=== PATIENT | male | born 1950 | race Caucasian/White ===

== ENCOUNTER 2018-03-23 15:25 | Inpatient (IN) | payer OTHER ==
[~2018-03-23] VITALS: Ht 185.4 cm; Wt 138.4 kg
[~2018-03-23 15:25] MED LIST: ALLOPURINOL300 MG PO; AMIODARONE HCL200 MG PO; ASPIRIN325 MG PO; COUMADIN5 MG PO; LISINOPRIL-HCT1 EAC2 PO; METFORMIN HCL500 MG PO; METOPROLOL SUCC25 MG PO; METOPROLOL TART25 MG PO; MONTELUKAST SOD10 MG PO; NORCO 7.5-3251 EACH PO; PRAVASTATIN SOD80 MG PO; TAMSULOSIN HCL0.4 MG PO
[2018-03-23] MEDS ORDERED: ASPIRIN 81 MG CHEW TAB PO STA (15:40)
[2018-03-23 15:59] LABS: BASOPHILS % 0.6 % (0.0-1.0); EOSINOPHILS # (AUTO) 0.2 (0.0-0.4); EOSINOPHILS % 3.3 % (0.0-6.0); HEMATOCRIT 39.6 % (38.2-49.6); HEMOGLOBIN 13.2 g/dL (14.0-18.0); LYMPHOCYTES % 31.2 % (18.0-39.1); MEAN CORPUSCULAR HEMOGLOBIN 31.4 pg (28-32); MEAN CORPUSCULAR HGB CONC 33.3 g/dL (31-35); MEAN CORPUSCULAR VOLUME 94.1 fL (81-99); MONOCYTES # (AUTO) 0.5 (0.2-0.8); MONOCYTES % 8.2 % (4.4-11.3); NEUTROPHILS # (AUTO) 3.6 (2.1-6.9); NEUTROPHILS % 56.4 % (38.7-80.0); PLATELET COUNT 225 x10e3/uL (140-360); RED BLOOD COUNT 4.21 x10e6/uL (4.3-5.7); RED CELL DISTRIBUTION WIDTH 12.9 % (11.7-14.4)
[2018-03-23 16:07] LABS: INR 1.11; PROTHROMBIN TIME 13.5 seconds (11.9-14.5)
[2018-03-23 16:08] LABS: PARTIAL THROMBOPLASTIN TIME 34.3 seconds (23.8-35.5)
[2018-03-23 16:18] LABS: ALANINE AMINOTRANSFERASE 33 IU/L (0-55); ALBUMIN/GLOBULIN RATIO 1.1 (0.8-2.0); ALKALINE PHOSPHATASE 77 IU/L (40-150); ANION GAP 13.7 mmol/L (8-16); BLOOD UREA NITROGEN 18 mg/dL (7-26); BUN/CREATININE RATIO 16 (6-25); CARBON DIOXIDE 25 mmol/L (22-29); CHLORIDE 102 mmol/L (98-107); CREATINE KINASE 108 IU/L (30-200); CREATININE, SERUM 1.15 mg/dL (0.72-1.25); EST GLOMERULAR FILTRATION RATE > 60 ML/MIN (60-); GLUCOSE 105 mg/dL (74-118); POTASSIUM 4.7 mmol/L (3.5-5.1); SODIUM 136 mmol/L (136-145)
[2018-03-23] MEDS ORDERED: SODIUM CHLORIDE FLUSH 10 ML SYR INJ PRN (16:30)
[2018-03-23 16:37] LABS: THYROID STIMULATING HORMONE 3.006 uIU/mL (0.350-4.940)
[2018-03-23] MEDS ORDERED: DIGOXIN 0.25 MG TAB PO ONE (17:15)
--- NOTE | 2018-03-23 17:32 | Diagnostic Imaging Report ---
PROCEDURE: A single AP view of the chest. COMPARISON: Patients [facility], CT, CT CHEST WO, 04/22/2017, 15:49. INDICATIONS: POST EVALUATION LOOPAGRAM, DIZZY FINDINGS: Lines/tubes: None. Lungs: The lungs are well inflated and clear. There is no evidence of pneumonia or pulmonary edema. Pleura: There is no pleural effusion or pneumothorax. Heart and mediastinum: The heart and the mediastinum are unremarkable. Bones: No acute bony abnormality. Fusion hardware is partially visualized in the lower cervical spine. IMPRESSION: 1. No acute cardiopulmonary abnormalities. Alexx Welsh M.D. Dictated by: Alexx Welsh M.D. on 03/23/2018 at 17:34 Electronically approved by: Alexx Welsh M.D. on 03/23/2018 at 17:34
[2018-03-23] MEDS ORDERED: LISINOPRIL10 MG PO (17:40)
[2018-03-23] MEDS ORDERED: DIGOXIN125 MCG PO (17:40)
[2018-03-23] MEDS ORDERED: WARFARIN SOD 5 MG TAB PO SCH (18:15)
[2018-03-23] MEDS: MONTELUKAST SODIUM 10 MG TAB PO SCH (19:33)
[2018-03-23 23:12] VITALS: BP 150/76
[2018-03-23 23:25] VITALS: BP 150/76
[2018-03-24] VITALS (7 sets, daily range): BP systolic 130–165; BP diastolic 62–90
[2018-03-24 06:58] LABS: BASOPHILS # (AUTO) 0.1 (0.0-0.1); BASOPHILS % 0.9 % (0.0-1.0); EOSINOPHILS # (AUTO) 0.3 (0.0-0.4); EOSINOPHILS % 4.8 % (0.0-6.0); HEMATOCRIT 39.5 % (38.2-49.6); HEMOGLOBIN 12.8 g/dL (14.0-18.0); MEAN CORPUSCULAR HEMOGLOBIN 31.4 pg (28-32); MEAN CORPUSCULAR HGB CONC 32.4 g/dL (31-35); MEAN CORPUSCULAR VOLUME 96.8 fL (81-99); MONOCYTES # (AUTO) 0.5 (0.2-0.8); MONOCYTES % 9.2 % (4.4-11.3); NEUTROPHILS # (AUTO) 2.7 (2.1-6.9); NEUTROPHILS % 48.6 % (38.7-80.0); PLATELET COUNT 198 x10e3/uL (140-360); RED BLOOD COUNT 4.08 x10e6/uL (4.3-5.7)
[2018-03-24 07:17] LABS: INR 1.07; PROTHROMBIN TIME 13.1 seconds (11.9-14.5)
[2018-03-24 07:21] LABS: CREATINE KINASE 96 IU/L (30-200)
[2018-03-24 07:28] LABS: ALANINE AMINOTRANSFERASE 30 IU/L (0-55); ALBUMIN 3.7 g/dL (3.5-5.0); ALBUMIN/GLOBULIN RATIO 1.1 (0.8-2.0); ALKALINE PHOSPHATASE 70 IU/L (40-150); ANION GAP 14.3 mmol/L (8-16); BLOOD UREA NITROGEN 19 mg/dL (7-26); BUN/CREATININE RATIO 18 (6-25); CALCIUM 10.4 mg/dL (8.4-10.2); CARBON DIOXIDE 27 mmol/L (22-29); CHLORIDE 103 mmol/L (98-107); CHOL/HDL RATIO 4.2 (3.9-4.7); CHOLESTEROL 199 MD/DL (0-199); CREATININE, SERUM 1.05 mg/dL (0.72-1.25); EST GLOMERULAR FILTRATION RATE > 60 ML/MIN (60-); GLUCOSE 120 mg/dL (74-118); HDL CHOLESTEROL 47 MG/DL (40-60); LDL CHOLESTEROL 110 MG/DL (60-130); POTASSIUM 5.3 mmol/L (3.5-5.1); SODIUM 139 mmol/L (136-145); TRIGLYCERIDES 210 MG/DL (0-149)
[2018-03-24] MEDS ORDERED: SOD POLYSTYRENE SULFONATE SUSP 15 GM/60 ML BTL PR NR ×2 (08:30→12:00)
[2018-03-24] MEDS ORDERED: SIMVASTATIN 40 MG TAB PO SCH (09:00)
[2018-03-24] MEDS ORDERED: METOPROLOL TARTRATE 25 MG TAB PO SCH (09:00)
[2018-03-24] MEDS: ASPIRIN 325 MG TAB PO SCH (09:00)
[2018-03-24] MEDS ORDERED: ASPIRIN 325 MG TAB EC PO SCH (09:00)
[2018-03-24] MEDS: TAMSULOSIN HCL 0.4 MG CAP PO SCH (09:01)
[2018-03-24] MEDS: SIMVASTATIN 40 MG TAB PO SCH (09:01)
[2018-03-24] MEDS: ALLOPURINOL 300 MG TAB PO SCH (09:01)
[2018-03-24] MEDS: LISINOPRIL 10 MG TAB PO SCH (09:01)
--- NOTE | 2018-03-24 09:50 | Consultation ---
DATE OF CONSULTATION: March 24, 2018 CARDIOLOGY CONSULTATION REASON FOR CONSULTATION: Syncope. HPI: This is a pleasant 67-year-old male that presented with syncope. According to the patient, for the last 2-3 months he has been getting very dizzy, passing out that he decided to see the citrix architect today. In the office, he saw Dr. Jin. His loop recorder was interrogated, and found he was having some pauses with sick sinus syndrome. He was sent to the emergency room for possible permanent pacemaker placement. He had a loop recorder implanted 3-[address] Juan Barksdale. His insurance changed, and he switched to us last year. He also had a history of hypothyroidism, and was taken off medications for the last 3-4 months because his thyroid got better. He denied any chest pain, any palpitation, any headache, any diaphoresis, or nausea. He had a chest x-ray done that showed no cardiopulmonary disease. EKG showed normal sinus rhythm with no S/T abnormalities. PAST MEDICAL HISTORY: Hypertension, diabetes, AFib, hypothyroidism, aortic stenosis, obstructive sleep apnea, hyperlipidemia, osteoarthritis, COPD, gout, spondylosis, spinal stenosis, kidney disease, and arthritis. PAST SURGICAL HISTORY: Cataract surgery, carpal tunnel surgery, cardioversion for AFib, cervical diskectomy, and implanted loop recorder. SOCIAL HISTORY: He quit smoking. He lives at home with the . FAMILY HISTORY: Positive for CAD. MEDICATIONS: He was on allopurinol, aspirin, lisinopril, metoprolol, pravastatin, Flomax, Coumadin, digoxin. ALLERGIES: HE IS NOT ALLERGIC TO ANY MEDICATION. REVIEW OF SYSTEMS: Negative except those mentioned above. PHYSICAL EXAMINATION VITAL SIGNS: Temperature 96, heart rate 60, blood pressure 152/79, respirations 20, oxygen saturation 98% on room air. GENERAL: He is morbidly obese, awake, alert, and oriented times 3. HEENT: Mucous membrane moist. NECK: Supple. LUNGS: Bilateral clear to auscultation. CARDIOVASCULAR: Irregular. ABDOMEN: Soft. NEUROLOGICAL: Intact. EXTREMITIES: With no edema. LABS: Sodium 139, potassium 5.3, chloride 103, CO2 27, BUN 19, creatinine 1.05, glucose 120. White blood cells 5.64, hemoglobin 12.8, hematocrit 39.5, and platelets 198,000. PT 13.5, PTT 34.3 and INR 1.11. IMPRESSION 1. Sick sinus syndrome. 2. Atrial fibrillation. 3. Hypertension. 4. Syncope. 5. Hyperkalemia. 6. Diabetes. 7. Obesity. 8. Hyperlipidemia. 9. History of implanted loop recorder. ASSESSMENT AND PLAN: Will go ahead and hold the Coumadin and beta jojo. Will give him Kayexalate times 1. Consult Dr. Rveeles for possible permanent pacemaker placement. Will get an echocardiogram to reassess the LV and the valve function. Also, check bilateral carotid Doppler to rule out any occlusion. Will also check his TSH. Further cardiac workup pending clinical course. Thank you for this consultation. DICTATED BY MANJU WISE NP Job#: [id number] TOY
--- NOTE | 2018-03-24 09:56 | History and Physical ---
PCP: Dr. Getachew Lopes UNION CARPENTER: Dr. Oumar Jin CHIEF COMPLAINT: Syncopal episode, atrial fibrillation, sick sinus syndrome. HISTORY: The patient is a 67-year-old male with decreasing heart rate in the 30s to 40s. He has been having passing-out episodes. Patient was sent to the hospital by his aircraft quality control inspector, Dr. Jin. Patient is otherwise stable. He does have sick sinus syndrome and is waiting for a permanent pacemaker. PAST MEDICAL HISTORY 1. Atrial fibrillation. 2. Syncope. 3. Hypertension. 4. Diabetes, type 2. 5. Coronary artery disease. 6. Congestive heart failure. 7. Hyperlipidemia. 8. Gout. 9. Enlarged prostate. PAST SURGICAL HISTORY: Cervical spine diskectomy. SOCIAL HISTORY: Patient does not smoke or use alcohol. No recreational drug use. ALLERGIES: NO KNOWN ALLERGIES. HOME MEDICATIONS: List reviewed. REVIEW OF SYSTEMS: As mentioned above. PHYSICAL EXAMINATION VITAL SIGNS: Temperature is 98. Blood pressure 165/90. Pulse rate 93. Respirations 18. GENERAL: The patient is in no acute distress. He is awake. HEENT: Normocephalic, atraumatic, anicteric. NECK: Supple grossly. PULMONARY: Clear. CARDIOVASCULAR: Atrial fibrillation. Rate controlled. ABDOMEN: Soft, obese. EXTREMITIES: No cyanosis or edema. NEUROLOGIC: There is no gross focal deficit. LABORATORY: Sodium is 139, potassium 5.3, chloride 103, bicarb 27, BUN 19, creatinine 1.05. Glucose 120. WBC is 5.6. Hemoglobin 12.8. Hematocrit 39.5. Platelets 198. IMPRESSION 1. Sick sinus syndrome. 2. Atrial fibrillation. 3. Syncopal episode. PLAN: Permanent pacemaker. Home medications resumed. Continue with current treatment. Will monitor the patient closely. Job#: [id number]
--- NOTE | 2018-03-24 14:13 | Consultation ---
DATE OF CONSULTATION: March 24, 2018 REASON FOR CONSULTATION: Evaluation of the patient for syncope and bradycardia. CHIEF COMPLAINT: Passed out. HISTORY OF PRESENT ILLNESS: Mr. Morrow is a 67-year-old gentleman with a history of paroxysmal atrial fibrillation, as well as history of syncope in the past, who has an implantable loop recorder in place. He had another episode where he blacked out today, and this correlated with an episode of atrial fibrillation with rapid ventricular response followed by conversion pause of 3-4 seconds. The patient has a history of diabetes mellitus, as well as hypertension. He has no history of cardiomyopathy, congestive heart failure, or myocardial infarction in the past. PAST MEDICAL HISTORY: Significant for: 1. Hypertension. 2. Diabetes mellitus. 3. Atrial fibrillation. SOCIAL HISTORY: Negative for tobacco, alcohol or drug abuse. FAMILY HISTORY: Negative for cardiac arrhythmias or congestive heart failure. ALLERGIES: NO KNOWN DRUG ALLERGIES. PHYSICAL EXAMINATION VITALS: Blood pressure is 130/70, heart rate currently is 70, respiratory rate 20, and O2 saturations are 100% on room air. GENERAL: Mr. Morrow is a middle-aged appearing gentleman in no acute distress. HEENT: Pupils equal, round and reactive to light. Mucous membranes are moist. Anicteric and acyanotic. CARDIOVASCULAR: S1 and S2 audible. Regular rate and rhythm. No murmurs, rubs or gallops are noted. LUNGS: Clear to auscultation bilaterally. ABDOMEN: Soft, nondistended and nontender. Bowel sounds heard in all 4 quadrants. No hepatosplenomegaly is noted. EXTREMITIES: Without peripheral edema. Two plus pulses in all 4 extremities. No clubbing or cyanosis is noted. NEUROLOGIC: He is alert and oriented times 3 with no focal neurologic deficits. LABORATORY STUDIES: Reviewed. Echo and carotid ultrasound are being performed today. EKG currently shows sinus rhythm. The implanted loop recorder monitor does show episodes of atrial fibrillation with heart rates in the 200s followed by conversion pauses of 3-4 seconds. These did correlate with an episode of syncope. CONCLUSION: Mr. Morrow has sick sinus syndrome with tachybrady syndrome. He has both atrial fibrillation with rapid ventricular response followed by conversion pauses associated with syncope. He has a class I indication for pacemaker implantation because he has symptomatic bradycardia following conversion pauses from his AFib. I have discussed the risks, benefits and alternatives with him at length. He understands and is agreeable to the plan. Will plan for pacemaker implantation for tomorrow. Thank you for the consultation. Job#: [id number] RI
[2018-03-24] MEDS: MONTELUKAST SODIUM 10 MG TAB PO SCH (20:12)
[2018-03-25] VITALS (16 sets, daily range): BP systolic 95–139; BP diastolic 57–93
[2018-03-25 07:06] LABS: BASOPHILS % 0.6 % (0.0-1.0); EOSINOPHILS # (AUTO) 0.3 (0.0-0.4); HEMATOCRIT 39.7 % (38.2-49.6); HEMOGLOBIN 13.3 g/dL (14.0-18.0); LYMPHOCYTES # (AUTO) 1.7 (1.0-3.2); LYMPHOCYTES % 26.2 % (18.0-39.1); MEAN CORPUSCULAR HEMOGLOBIN 31.9 pg (28-32); MEAN CORPUSCULAR HGB CONC 33.5 g/dL (31-35); MEAN CORPUSCULAR VOLUME 95.2 fL (81-99); MONOCYTES # (AUTO) 0.6 (0.2-0.8); MONOCYTES % 9.9 % (4.4-11.3); NEUTROPHILS # (AUTO) 3.7 (2.1-6.9); NEUTROPHILS % 58.8 % (38.7-80.0); PLATELET COUNT 202 x10e3/uL (140-360); RED BLOOD COUNT 4.17 x10e6/uL (4.3-5.7); RED CELL DISTRIBUTION WIDTH 13.1 % (11.7-14.4)
[2018-03-25 07:45] LABS: THYROID STIMULATING HORMONE 2.254 uIU/mL (0.350-4.940)
[2018-03-25 07:49] LABS: ANION GAP 14.5 mmol/L (8-16); BLOOD UREA NITROGEN 18 mg/dL (7-26); BUN/CREATININE RATIO 18 (6-25); CALCIUM 9.9 mg/dL (8.4-10.2); CARBON DIOXIDE 27 mmol/L (22-29); CHLORIDE 102 mmol/L (98-107); CREATININE, SERUM 0.98 mg/dL (0.72-1.25); EST GLOMERULAR FILTRATION RATE > 60 ML/MIN (60-); GLUCOSE 125 mg/dL (74-118); MAGNESIUM 1.9 MG/DL (1.3-2.1); POTASSIUM 4.5 mmol/L (3.5-5.1); SODIUM 139 mmol/L (136-145)
[2018-03-25] MEDS: ASPIRIN 325 MG TAB PO SCH (08:00)
[2018-03-25] MEDS: LISINOPRIL 10 MG TAB PO SCH (08:14)
[2018-03-25] MEDS: SIMVASTATIN 40 MG TAB PO SCH (08:14)
[2018-03-25] MEDS: ALLOPURINOL 300 MG TAB PO SCH (08:14)
[2018-03-25] MEDS: TAMSULOSIN HCL 0.4 MG CAP PO SCH (08:14)
[2018-03-25] MEDS ORDERED: MIDAZOLAM HCL 2 MG/2 ML VIAL ONE ×2 (14:30→15:09)
[2018-03-25] MEDS ORDERED: FENTANYL CITRATE/PF 100MCG/2 ML INJ ONE (14:30)
[2018-03-25] MEDS ORDERED: BACITRACIN 50,000 UNIT VIAL ONE (14:31)
[2018-03-25] MEDS ORDERED: SODIUM CHLORIDE 0.9% 1000ML 2,000 ML ONE (14:31)
[2018-03-25] MEDS ORDERED: VANCOMYCIN 1GM/NS 250 ML 250 ML ONE (14:48)
[2018-03-25] MEDS ORDERED: LIDOCAINE 1% W/EPINEPHRINE 20 ML VIAL ONE (14:58)
[2018-03-25] MEDS ORDERED: SODIUM CHLORIDE 0.9% 1000ML 1,000 ML ONE ×2 (14:58→16:01)
[2018-03-25] MEDS ORDERED: FLUMAZENIL 0.5MG/ 5ML VIAL ONE (15:28)
[2018-03-25] MEDS ORDERED: NALOXONE HCL INJ 0.4 MG/ML AMP ONE (15:28)
[2018-03-25] MEDS: MONTELUKAST SODIUM 10 MG TAB PO SCH (21:19)
[2018-03-26] VITALS (8 sets, daily range): BP systolic 115–154; BP diastolic 52–110
[2018-03-26] MEDS: ALLOPURINOL 300 MG TAB PO SCH (08:24)
[2018-03-26] MEDS: ASPIRIN 325 MG TAB PO SCH (08:24)
[2018-03-26] MEDS: TAMSULOSIN HCL 0.4 MG CAP PO SCH (08:24)
[2018-03-26] MEDS ORDERED: METOPROLOL TARTRATE INJ 1 MG/ML VIAL IV PRN (08:30)
[2018-03-26] MEDS: LISINOPRIL 10 MG TAB PO SCH ×2 (08:42→08:47)
[2018-03-26] MEDS: METOPROLOL TARTRATE 25 MG TAB PO SCH ×2 (08:46→17:39)
[2018-03-26] MEDS: MONTELUKAST SODIUM 10 MG TAB PO SCH (19:24)
[2018-03-26] MEDS ORDERED: SIMVASTATIN 40 MG TAB PO SCH (21:00)
[2018-03-27 00:37] VITALS: BP 140/79
[2018-03-27 05:09] VITALS: BP 136/89
[2018-03-27 07:15] VITALS: BP 136/89
[2018-03-27 07:30] VITALS: BP 136/89
[2018-03-27] MEDS: TAMSULOSIN HCL 0.4 MG CAP PO SCH (09:00)
[2018-03-27] MEDS: METOPROLOL TARTRATE 25 MG TAB PO SCH (09:00)
[2018-03-27] MEDS: ALLOPURINOL 300 MG TAB PO SCH (09:00)
[2018-03-27] MEDS: LISINOPRIL 10 MG TAB PO SCH (09:00)
[2018-03-27] MEDS: ASPIRIN 325 MG TAB PO SCH (09:00)
[2018-03-27 11:45] VITALS: BP 128/64
--- NOTE | 2018-03-27 18:13 | Discharge Summary ---
PCP: Dr. Getachew Lopes. CONSULTANTS 1. Dr. Franklin Copeland. 2. Dr. Oumar Jin. FINAL DIAGNOSES 1. Sick sinus syndrome associated with cardiac dysrhythmia with atrial fibrillation and bradycardia. 2. Status post left chest permanent pacemaker. 3. Baseline hypertension. 4. Obesity. 5. Hyperlipidemia. SUMMARY: Patient is a very pleasant 67-year-old male who has atrial fibrillation. The patient is on anticoagulant therapy with warfarin. He came in subtherapeutic, but more importantly he was taking metoprolol at home and digoxin. His heart rate went down to the 30 and 40 and then jumped up very elevated. Patient was seen by Dr. Jin and he was diagnosed with sick sinus syndrome. Patient was subsequently seen by Dr. Anushka Copeland on consult. Patient subsequently had a left upper chest permanent pacemaker placement. He is stable now. He is comfortable, blood pressure under control, heart rate in the 67, and episodic pacing. The patient is stable. He will go home today. Follow up with Dr. Jin as instructed. He will resume his home medications for now. Instructions for patient not to use his left upper extremity until cleared by Dr. Jin. The patient is stable. Activity as tolerated. Not to use left upper extremity. Permanent pacemaker care education. A 2-gram sodium diet. Follow up as instructed. Job#: [id number] RACHEL
--- NOTE | 2018-03-30 10:10 | Operative Report ---
DATE OF PROCEDURE: March 25, 2018 PREPROCEDURAL DIAGNOSES: 1. Syncope and collapse. 2. Tachybrady syndrome with atrial fibrillation with conversion pauses of greater than 3 to 4 seconds, associated with syncope. 3. History of paroxysmal atrial fibrillation. 4. Hypertension. POSTPROCEDURAL DIAGNOSES: 1. Syncope and collapse. 2. Tachybrady syndrome with atrial fibrillation with conversion pauses of greater than 3 to 4 seconds, associated with syncope. 3. History of paroxysmal atrial fibrillation. 4. Hypertension. PROCEDURES PERFORMED: 1. Left subclavian venogram. 2. [employer] dual-chamber pacemaker insertion in the left pectoral region. 3. Moderate sedation. PROCEDURE IN DETAIL: Mr. Morrow was brought to the labor gang supervisor here at [facility] in the fasting and nonsedated state. The left pectoral region was prepped and draped in a sterile manner. The pocket was formed with a combination of electrocautery, blunt, and sharp dissection. Access to the axillary vein was made through the pocket, and 2 guidewires were placed in this vein with the tips in the IVC. A 6-[place] sheath was placed over the first guidewire through which an [employer] MRI pacing lead, model #7742, serial #[id number] was implanted in the right ventricular apex without complications. Adequate pacing and sensing parameters were observed and the sheath was peeled away and the lead secured to the underlying fascia with #0 silk. A 7-[place] sheath was then placed over the remaining guidewire through which an [employer] MRI pacing lead, model #7741, serial #[id number] was implanted in the right atrial appendage without complications. Adequate pacing and sensing parameters were observed and the sheath was peeled away and the lead secured to the underlying fascia with #0 silk. Pocket was irrigated with antibiotic-containing normal saline and the leads connected to a [employer] pacemaker generator, model #L311, serial #[id number]. The generator and leads were then placed in the pocket and secured to the underlying fascia with #0 silk. The pocket was closed in 2 layers with 2-0 Vicryl for the deep and subcutaneous layers and 4-0 Vicryl for the skin. Dermabond was placed for additional skin approximation. DEVICE DATA: Right ventricular lead has R waves of 20.3 mV, a threshold of 0.6 V and a pulse width of 0.4 msec and a pacing impedance of 1367 ohms. The right atrial lead has fib waves of 3.5 mV, a threshold could not be calculated because of AFib, impedance was 630 ohms. Of note, moderate sedation was administered for the procedure. Total moderate sedation time was 35 minutes. About 3 mg of Versed was administered and 75 mcg of fentanyl. Pulse oximetry and hemodynamic monitoring were performed throughout the procedure. Of note, during the procedure, patient did develop significant hypotension which was thought to be related to sedation and vasodilatation and dehydration. Fluid boluses was administered which did cause some improvement, but we did reverse the sedation in order to help with the hypotension. Postprocedural STAT echo was performed demonstrating no evidence of any significant effusion and normal cardiac function. At this point with the hypotension recovered, patient was sent back to his room in stable condition. CONCLUSION: 1. Successful implantation of a [employer] dual-chamber pacemaker in the left pectoral region. 2. Moderate sedation was administered. 3. Patient had transient hypotension due to vasodilatation from sedation or from antibiotics which resolved with fluid resuscitation. 4. No complications. Job#: [id number] DR CASTILLO
== END 2018-03-27 15:36 | disposition home or self-care (01) | DRG 243 ==
LOC: ER 15:25 → ERHOLD 16:55 → MED/SURG3 20:38 → OBSVTOIN 03-24 09:23 → IMCU 03-25 16:59
PROVIDERS: ADMIT Internal Medicine; ATTEND Internal Medicine
PROC: 0JH606Z Insertion of Pacemaker, Dual Chamber into Chest Subcutaneous Tissue and Fascia, Open Approach (ICD-10-PCS; principal; 2018-03-25)
PROC: 02H63JZ Insertion of Pacemaker Lead into Right Atrium, Percutaneous Approach (ICD-10-PCS; 2018-03-25)
PROC: 02HK3JZ Insertion of Pacemaker Lead into Right Ventricle, Percutaneous Approach (ICD-10-PCS; 2018-03-25)
DX: I49.5 Sick sinus syndrome (principal); I97.790 Other intraoperative cardiac functional disturbances during cardiac surgery; Z68.41 Body mass index [BMI] 40.0-44.9, adult; E78.5 Hyperlipidemia, unspecified; I10 Essential (primary) hypertension; I48.0 Paroxysmal atrial fibrillation; I95.89 Other hypotension; R79.1 Abnormal coagulation profile; J44.9 Chronic obstructive pulmonary disease, unspecified; M10.9 Gout, unspecified; E66.01 Morbid (severe) obesity due to excess calories; N40.0 Benign prostatic hyperplasia without lower urinary tract symptoms; I25.10 Atherosclerotic heart disease of native coronary artery without angina pectoris
CPT/HCPCS: 33208; 36415; 71045; 77001; 80048; 80053; 80061; 80162; 82550; 82553; 82948; 83735; 83880; 84443; 84484; 85025; 85610; 85730; 93005; 93306; 93307; 93880; 96365; 97139; 99284; C1898; G0378; J2250; J2310; J3370; J7030